=== PATIENT | female | born 1935 | race Caucasian/White ===

== ENCOUNTER 2022-03-05 11:16 | Inpatient (IN) | payer MEDICARE, BC ==
[2022-03-05] MEDS ORDERED: PANTOPRAZOLE 40 MG/10 ML VIAL IVP STA (12:39)
[2022-03-05] MEDS ORDERED: SODIUM CHLORIDE 0.9% 1,000 ML IV STA (12:39)
--- NOTE | 2022-03-05 12:48 | ED ---
General Adult HPI - General Chief complaint: Nausea/Vomiting/Diarrhea Stated complaint: C-Dif Time Seen by Provider: 03/05/22 12:18 Source: patient, family, RN notes reviewed Mode of arrival: ambulatory Limitations: no limitations - History of Present Illness Initial comments: Patient is a pleasant 86-year-old female presenting to the emergency department with concerns of diarrhea. Symptoms have been present for one month. Patient did complete 20 days of vancomycin as well as 10 days of Flagyl. Patient has been off antibiotics now for the last 3 days. Patient did test positive for Clostridium difficile. No nausea vomiting. Patient is tolerating oral intake. No abdominal pain. - Related Data Allergies Allergy/AdvReac Type Severity Reaction Status Date / Time No Known Allergies Allergy Verified 03/05/22 11:30 Review of Systems ROS Statement: Those systems with pertinent positive or pertinent negative responses have been documented in the HPI. ROS Other: All systems not noted in ROS Statement are negative. Constitutional: Denies: fever Eyes: Denies: eye pain ENT: Denies: ear pain Respiratory: Denies: cough Cardiovascular: Denies: chest pain Endocrine: Denies: fatigue Gastrointestinal: Reports: as per HPI, diarrhea. Denies: abdominal pain Genitourinary: Denies: dysuria Musculoskeletal: Denies: back pain Skin: Denies: rash Neurological: Denies: weakness Past Medical History Additional Past Medical History / Comment(s): c diff february 05 History of Any Multi-Drug Resistant Organisms: C-DIFF Past Surgical History: No Surgical Hx Reported Past Psychological History: No Psychological Hx Reported Smoking Status: Never smoker Past Alcohol Use History: None Reported Past Drug Use History: None Reported General Exam Limitations: no limitations General appearance: alert, in no apparent distress Head exam: Present: normocephalic Eye exam: Present: normal appearance Neck exam: Present: normal inspection Respiratory exam: Present: normal lung sounds bilaterally Cardiovascular Exam: Present: regular rate, normal rhythm GI/Abdominal exam: Present: soft. Absent: distended, tenderness Extremities exam: Present: normal inspection Neurological exam: Present: alert Psychiatric exam: Present: normal affect, normal mood Skin exam: Present: normal color Course Vital Signs 03/05/22 11:26 Temperature 97.9 F Pulse Rate 92 Respiratory 18 Rate Blood Pressure 147/77 O2 Sat by Pulse 95 Oximetry Medical Decision Making - Medical Decision Making Case discussed with Dr. Sepulveda, who will admit covering city call and family updated. - Lab Data Result diagrams: 03/05/22 12:48 03/05/22 12:48 Lab Results 03/05/22 03/05/22 Range/Units 12:48 12:48 WBC 6.0 (3.8-10.6) k/uL RBC 4.24 (3.80-5.40) m/uL Hgb 13.3 (11.4-16.0) gm/dL Hct 40.6 (34.0-46.0) % MCV 95.8 (80.0-100.0) fL MCH 31.4 (25.0-35.0) pg MCHC 32.7 (31.0-37.0) g/dL RDW 12.2 (11.5-15.5) % Plt Count 283 (150-450) k/uL MPV 7.8 Neutrophils % 66 % Lymphocytes % 22 % Monocytes % 8 % Eosinophils % 1 % Basophils % 1 % Neutrophils # 4.0 (1.3-7.7) k/uL Lymphocytes # 1.3 (1.0-4.8) k/uL Monocytes # 0.5 (0-1.0) k/uL Eosinophils # 0.1 (0-0.7) k/uL Basophils # 0.0 (0-0.2) k/uL Sodium 136 L (137-145) mmol/L Potassium 4.1 (3.5-5.1) mmol/L Chloride 105 (98-107) mmol/L Carbon Dioxide 26 (22-30) mmol/L Anion Gap 5 mmol/L BUN 14 (7-17) mg/dL Creatinine 0.66 (0.52-1.04) mg/dL Est GFR (CKD-EPI)AfAm >90 (>60 ml/min/1.73 sqM) Est GFR (CKD-EPI)NonAf 81 (>60 ml/min/1.73 sqM) Glucose 96 (74-99) mg/dL Calcium 9.5 (8.4-10.2) mg/dL Total Bilirubin 0.4 (0.2-1.3) mg/dL AST 43 H (14-36) U/L ALT 22 (4-34) U/L Alkaline Phosphatase 63 (38-126) U/L Total Protein 7.1 (6.3-8.2) g/dL Albumin 4.0 (3.5-5.0) g/dL Amylase 85 (30-110) U/L Lipase 169 (23-300) U/L Disposition Clinical Impression: Clostridioides difficile infection Disposition: ADMITTED IP TO THIS HOSP Is patient prescribed a controlled substance at d/c from ED?: No Referrals: Rufina Clifford DO [Primary Care Provider] - 1-2 days Time of Disposition: 13:58
[2022-03-05 13:13] LABS: Basophils % (A) 1 %; Eosinophils # (A) 0.1 k/uL (0-0.7); Eosinophils % (A) 1 %; HCT 40.6 % (34.0-46.0); HGB 13.3 gm/dL (11.4-16.0); Lymphocytes # (A) 1.3 k/uL (1.0-4.8); Lymphocytes % (A) 22 %; MCH 31.4 pg (25.0-35.0); MCHC 32.7 g/dL (31.0-37.0); MCV 95.8 fL (80.0-100.0); Mean Platelet Volume 7.8; Monocytes # (A) 0.5 k/uL (0-1.0); Monocytes % (A) 8 %; Neutrophils % (A) 66 %; Platelet Count 283 k/uL (150-450); RBC 4.24 m/uL (3.80-5.40); RDW 12.2 % (11.5-15.5)
[2022-03-05 13:25] LABS: ALT 22 U/L (4-34); AST 43 U/L (14-36); African American GFR (CKD) >90 (>60 ml/min/1.73 sqM); Alkaline Phosphatase 63 U/L (38-126); Amylase 85 U/L (30-110); Anion Gap 5 mmol/L; Blood Urea Nitrogen 14 mg/dL (7-17); Calcium 9.5 mg/dL (8.4-10.2); Carbon Dioxide 26 mmol/L (22-30); Chloride 105 mmol/L (98-107); Glucose 96 mg/dL (74-99); Lipase 169 U/L (23-300); Non-African American GFR(CKD) 81 (>60 ml/min/1.73 sqM); Potassium 4.1 mmol/L (3.5-5.1); Sodium 136 mmol/L (137-145); Total Bilirubin 0.4 mg/dL (0.2-1.3); Total Protein 7.1 g/dL (6.3-8.2)
[2022-03-05] MEDS ORDERED: NALOXONE 0.4 MG/ML 1 ML VIAL IV PRN (13:59)
[2022-03-05] MEDS ORDERED: VANCOMYCIN IV PER PHARMACY 1 EACH MISC MISCELLANE PRN (14:00)
[2022-03-05] MEDS: FIDAXOMICIN 200 MG TABLET PO SCH ×2 (14:54→21:26)
[2022-03-05] MEDS: SODIUM CHLORIDE 0.9% 1,000 ML IV SCH (14:54)
[2022-03-05] MEDS: metroNIDAZOLE 500 MG TAB PO SCH ×2 (17:41→21:26)
[2022-03-05] MEDS: levETIRAcetam 500 MG TAB PO SCH (21:26)
[2022-03-06] MEDS: SODIUM CHLORIDE 0.9% 1,000 ML IV SCH ×2 (04:00→14:38)
--- NOTE | 2022-03-06 06:51 | HP ---
HISTORY AND PHYSICAL 86-year-old white female came to the emergency room with diarrhea. She says it has been present for a month, 20 days of vancomycin as well as 10 days of Flagyl. She has been off antibiotics now for the last three days. Positive for C diff. Continues to have diarrhea 16-20 episodes at home. Failed outpatient Flagyl and vancomycin. ALLERGIES: Negative. REVIEW OF SYMPTOMS: 14 point review of systems otherwise negative. PHYSICAL EXAMINATION: Vital signs stable, afebrile. Cardiovascular S1, S2. Lungs clear. GI soft, normal bowel sounds. No mass. No rebound. Neurologic: Alert and oriented x3. Psych fair mood and affect. Skin normal color. Temp 97.9, pulse 92, respiratory 16 to 18, blood pressure 147/77. C diff colitis, failed outpatient therapy, mild dehydration, progressive diarrhea unphased, elevated liver enzyme with AST of 43. Infectious Disease consult. Rehydrate. Prognosis guarded. MMODL / KATIEN: [id number] /
[2022-03-06] MEDS: ASPIRIN 81 MG PO SCH (07:48)
[2022-03-06] MEDS: MULTIVITAMINS, THERA 1 EACH TAB PO SCH (07:49)
[2022-03-06] MEDS: FIDAXOMICIN 200 MG TABLET PO SCH ×2 (07:49→20:34)
[2022-03-06] MEDS: PANTOPRAZOLE 40 MG/10 ML VIAL IV SCH (07:50)
[2022-03-06] MEDS: levETIRAcetam 500 MG TAB PO SCH ×2 (09:04→20:34)
--- NOTE | 2022-03-06 12:23 | P.CONS ---
History of Present Illness - Reason for Consult Consult date: 03/06/22 Cdiff, Diarrhea Requesting physician: Carl Hernandez - Chief Complaint Diarrhea - History of Present Illness This is a very pleasant 86-year-old white female who presented to the emergency department with continued complaints of diarrhea. Patient states she has had diarrhea since January 30. States she was seen by her PCP and diagnosed with C. diff colitis towards the end of January and was started on vancomycin and completed 10 days' duration. Patient states she continued to have diarrhea she's been having greater than 10-20 per day. States that she went to [facility] and was seen in the emergency room where they started her on vancomycin and Flagyl again for 10 days duration. She continues to have diarrhea states she's had 5 episodes since midnight last night. She denies any associated nausea vomiting or abdominal pain. Her last colonoscopy she believes was approximately 5 years ago. She denies any recent changes or new medications, she denies any fevers or chills. Review of Systems REVIEW OF SYSTEMS: CARDIOPULMONARY: No chest pain or shortness of breath. Gastrointestinal: No abdominal pain. No nausea or vomiting. No hematemesis, coffee-ground emesis. Had diarrhea since January, complaints of 10-20 episodes a d ay. No rectal bleeding, or melena. GENITOURINARY: No dysuria or hematuria. MUSCULOSKELETAL: Reports normal range of motion. SKIN: No rashes. No jaundice. ENDOCRINE: No chills, fevers. No excessive weight gain or loss. No polydipsia or polyuria. PSYCHIATRIC: Unremarkable. NEUROLOGY: No change in mental status. Denies dizziness, headache. ENT: Vision unremarkable. CONSTITUTIONAL: No recent weight loss. No fever, chills, night sweats. Past Medical History Past Medical History: Seizure Disorder Additional Past Medical History / Comment(s): c diff february 05 History of Any Multi-Drug Resistant Organisms: C-DIFF Year Discovered:: January 2022 MDRO Source:: C-Diff Past Surgical History: No Surgical Hx Reported Additional Past Surgical History / Comment(s): Cataract surgery Past Anesthesia/Blood Transfusion Reactions: No Reported Reaction Past Psychological History: No Psychological Hx Reported Smoking Status: Never smoker Past Alcohol Use History: None Reported Past Drug Use History: None Reported - Past Family History Father History Unknown: Yes Mother History Unknown: Yes Medications and Allergies Home Medications Medication Instructions Recorded Confirmed Type Aspirin EC [Ecotrin Low Dose] 81 mg PO DAILY 03/05/22 03/05/22 History Calcium(Unknown) 1 tab PO DAILY 03/05/22 03/05/22 History Fish Oil(Unknown) 1 cap PO DAILY 03/05/22 03/05/22 History Multivitamins, Thera [Multivitamin 1 tab PO DAILY 03/05/22 03/05/22 History (formulary)] Vitamin B-12(Unknown) 1 tab PO DAILY 03/05/22 03/05/22 History Vitamin C(Unknown) 1 tab PO DAILY 03/05/22 03/05/22 History Vitamin D3(Unknown) 1 tab PO DAILY 03/05/22 03/05/22 History levETIRAcetam [Keppra] 500 mg PO BID 03/05/22 03/05/22 History Allergies Allergy/AdvReac Type Severity Reaction Status Date / Time No Known Allergies Allergy Verified 03/05/22 14:31 Physical Exam Vitals: Vital Signs Temp Pulse Pulse Resp BP BP Pulse Ox 03/06/22 07:14 97.9 F 78 17 124/73 95 03/06/22 01:19 98.0 F 72 16 128/77 94 L 03/05/22 19:53 97.9 F 73 20 137/79 96 03/05/22 16:35 98.0 F 73 18 149/80 95 03/05/22 14:51 80 18 136/78 98 03/05/22 11:26 97.9 F 92 18 147/77 95 Intake and Output 03/05/22 03/06/22 03/06/22 22:59 06:59 14:59 Intake Total 240 360 Balance 240 360 Intake: Oral 240 360 Other: Voiding Method Toilet Diaper # Voids 1 2 # Bowel Movements 6 Weight 59.5 kg General appearance: The patient is alert, oriented, appears in no acute di stress. HET: Head is normocephalic and atraumatic. Conjunctiva pink. Sclera anicteric. Neck: Supple without lymphadenopathy. Trachea midline. Heart: S1 S2. Regular rate and rhythm. Lungs: Clear to auscultation. Abdomen: Soft, nontender, nondistended with bowel sounds. No guarding or rigidity. Skin: No rashes. No jaundice. Extremities: Normal skin color and turgor. No pedal edema. Neurological: No focal deficits. Alert and oriented x3. Results CBC & Chem 7: 03/05/22 12:48 03/05/22 12:48 Labs: Abnormal Lab Results - Last 24 Hours (Table) 03/05/22 Range/Units 12:48 Sodium 136 L (137-145) mmol/L AST 43 H (14-36) U/L Assessment and Plan (1) Diarrhea Narrative/Plan: This is a 86-year-old female who was diagnosed with C. diff mid to late January and was initially treated with vancomycin 10 days. Patient states she continued to have diarrhea and was seen at [facility] where the emergency room physician continued vancomycin for 10 days and started Flagyl. She states she continues to have diarrhea greater than 10-15 times per day. She denies any blood in her stool. She states her last colonoscopy was approximately 5 years a go. No new meds and no fever. Possible etiology includes infectious versus viral, possible continued C. diff infection. Will start with stool studies. Infectious disease is following as well. Current Visit: Yes Status: Acute Code(s): R19.7 - DIARRHEA, UNSPECIFIED SNOMED Code(s): 22159850 (2) History of Clostridioides difficile infection Current Visit: Yes Status: Acute Code(s): Z86.19 - PERSONAL HISTORY OF OTHER INFECTIOUS AND PARASITIC DISEASES SNOMED Code(s): 607529216539660 Plan: 1. Continue symptomatic and supportive care 2. Diet as tolerated 3. Stool studies ordered 4. Await further recommendations from infectious disease 5. Further recommendations forthcoming based on clinical course Thank you for this consultation, we will continue to follow. Dr. Lolita Kauffman I agree with the dictator's note, documented as a scribe by Susie Holder.
[2022-03-06] MEDS: ENOXAPARIN 40 MG/0.4 ML SYRINGE SQ SCH (13:13)
[2022-03-06] MEDS: PSYLLIUM HUSK 100% 6 GM PACKET PO SCH ×2 (13:14→20:34)
[2022-03-06] MEDS: LACTOBACILLUS ACIDOPH & BULGAR 1 EACH PACKET PO SCH ×2 (13:14→20:34)
--- NOTE | 2022-03-06 18:16 | P.PN ---
Progress Note - Text Progress Note Date: 03/06/22 Interval history: I'm rounding for Dr. Zeeshan Sepulveda March 06: Patient's had 2 recent bouts of C. diff colitis. Just finished a course of Flagyl and vancomycin recently. Patient now admitted with acute diarrhea. C. diff has come back to be negative. Empirically has been on Dificid. Since last night patient had at least 10-12 BMs. No blood. No abdominal pain. No fever no chills. I started the patient empirically on Metamucil. Care was discussed with the daughter and the patient at the bedside. Also changing the diet to soft Active Medications Aspirin (Aspirin 81 Mg) 81 mg PO DAILY [facility] Last Admin: 03/06/22 07:48 Dose: 81 mg Enoxaparin Sodium (Enoxaparin 40 Mg/0.4 Ml Syringe) 40 mg SQ DAILY [facility] Last Admin: 03/06/22 13:13 Dose: 40 mg Fidaxomicin (Fidaxomicin 200 Mg Tablet) 200 mg PO BID [facility] Stop: 03/14/22 21:01 Last Admin: 03/06/22 07:49 Dose: 200 mg Sodium Chloride (Saline 0.9%) 1,000 mls @ 75 mls/hr IV .[id number] [facility] Last Admin: 03/06/22 14:38 Dose: Not Given Lactobacillus Acidoph/Bulgaricus (Lactobacillus Acidoph & Bulgar 1 Each Packet) 1 each PO BID [facility] Last Admin: 03/06/22 13:14 Dose: 1 each Levetiracetam (Levetiracetam 500 Mg Tab) 500 mg PO BID [facility] Last Admin: 03/06/22 09:04 Dose: 500 mg Multivitamins (Multivitamins, Thera 1 Each Tab) 1 each PO DAILY [facility] Last Admin: 03/06/22 07:49 Dose: 1 each Naloxone HCl (Naloxone 0.4 Mg/Ml 1 Ml Vial) 0.2 mg IV Q2M PRN PRN Reason: Opioid Reversal Pantoprazole Sodium (Pantoprazole 40 Mg/10 Ml Vial) 40 mg IV DAILY [facility] Last Admin: 03/06/22 07:50 Dose: 40 mg Psyllium Hydrophilic Mucilloid (Psyllium Husk 100% 6 Gm Packet) 6 gm PO BID [facility] Last Admin: 03/06/22 13:14 Dose: 6 gm On examination: VITAL SIGNS: [97.4, 79, 17, 136-71, 96% room air] GENERAL APPEARANCE: Reclining in bed, awake HEENT: Normal external appearance of nose and ear. Oral cavity normal EYES: Pupils equal. Conjunctiva normal. NECK: JVD not raised. Mass not palpable. RESPIRATORY: Respiratory effort normal. Lungs clear to auscultation. CARDIOVASCULAR: First and second sounds normal. No edema. ABDOMEN: Soft. Liver and spleen not palpable. No tenderness. No mass palpable. PSYCHIATRY: Alert and oriented x3. Mood and affect normal. INVESTIGATIONS, reviewed in the clinical context: White count 6 hemoglobin 13.3 platelets 283 potassium 4.1 creatinine 0.66 C. diff: Negative Assessment and plan: -Acute diarrhea uncontrolled. Possibly antibiotic associated diarrhea Patient is a 2 rounds of C. diff infection. Treated with a full course. On this admission C. diff is negative. No white count. No abdominal pain. Start the patient on Metamucil 6 g every 12. Add probiotic. Change diet to soft. Being followed by GI -Epilepsy disorder Keppra 5 mg twice a day -Primary osteoarthritis multiple joints bilaterally Tylenol as needed Add Metamucil. Change diet to soft. DC Protonix. Gentle hydration. Follow with ID and GI. Stool cultures pending.
[2022-03-06 21:48] LABS: Cryptosporidium Antigen Negative (Negative)
--- NOTE | 2022-03-06 22:34 | P.CONS ---
History of Present Illness - Reason for Consult Consult date: 03/06/22 C. diff resistant Requesting physician: Zeeshan Sepulveda - Chief Complaint Worsening diarrhea x few days - History of Present Illness Patient is a 86-year-old female who apparently was recently diagnosed and treated for C. difficile colitis with symptoms started on January 30 as the patient did have a multiple loose stools patient has been treated with a course of oral vancomycin subsequently patient did have persistent diarrhea and the patient was evaluated at [facility] the patient has been treated with vancomycin and Flagyl however the patient did have persistent diarrhea going to the bathroom every hour on the hour patient did have some mucus in the stool but no blood is becoming some crampy abdominal pain intensity is 6-7 out of 10 no radiation some nausea but no vomiting with the symptoms the patient has been evaluated on arrival to the ER the patient was afebrile patient did have a normal white count kidney function has been normal liver enzymes are normal stool for C. difficile requested and currently pending patient was started on Di ficid infectious disease was consulted for further management of antibiotic therapy Review of Systems Positive point has been mentioned in the HPI rest of the systems are negative Past Medical History Past Medical History: Seizure Disorder Additional Past Medical History / Comment(s): c diff february 05 History of Any Multi-Drug Resistant Organisms: C-DIFF Year Discovered:: January 2022 MDRO Source:: C-Diff Past Surgical History: No Surgical Hx Reported Additional Past Surgical History / Comment(s): Cataract surgery Past Anesthesia/Blood Transfusion Reactions: No Reported Reaction Past Psychological History: No Psychological Hx Reported Smoking Status: Never smoker Past Alcohol Use History: None Reported Past Drug Use History: None Reported - Past Family History Father History Unknown: Yes Mother History Unknown: Yes Medications and Allergies Home Medications Medication Instructions Recorded Confirmed Type Aspirin EC [Ecotrin Low Dose] 81 mg PO DAILY 03/05/22 03/05/22 History Calcium(Unknown) 1 tab PO DAILY 03/05/22 03/05/22 History Fish Oil(Unknown) 1 cap PO DAILY 03/05/22 03/05/22 History Multivitamins, Thera [Multivitamin 1 tab PO DAILY 03/05/22 03/05/22 History (formulary)] Vitamin B-12(Unknown) 1 tab PO DAILY 03/05/22 03/05/22 History Vitamin C(Unknown) 1 tab PO DAILY 03/05/22 03/05/22 History Vitamin D3(Unknown) 1 tab PO DAILY 03/05/22 03/05/22 History levETIRAcetam [Keppra] 500 mg PO BID 03/05/22 03/05/22 History Cholestyramine (with Sugar) 4 gm PO ACHS #14 packet 03/08/22 Rx [Questran Packet] Allergies Allergy/AdvReac Type Severity Reaction Status Date / Time No Known Allergies Allergy Verified 03/05/22 14:31 Physical Exam Vitals: Vital Signs Temp Pulse Pulse Resp BP BP Pulse Ox 03/06/22 07:14 97.9 F 78 17 124/73 95 03/06/22 01:19 98.0 F 72 16 128/77 94 L 03/05/22 19:53 97.9 F 73 20 137/79 96 03/05/22 16:35 98.0 F 73 18 149/80 95 03/05/22 14:51 80 18 136/78 98 03/05/22 11:26 97.9 F 92 18 147/77 95 Intake and Output 03/05/22 03/06/22 03/06/22 22:59 06:59 14:59 Intake Total 240 360 Balance 240 360 Intake: Oral 240 360 Other: Voiding Method Toilet Diaper # Voids 1 2 # Bowel Movements 6 Weight 59.5 kg GENERAL DESCRIPTION: Elderly female lying in bed, no distress. No tachypnea or accessory muscle of respiration use. HEENT: Shows Pallor , no scleral icterus. Oral mucous membrane is dry. No pharyngeal erythema or thrush NECK: Trachea central, no thyromegaly. LUNGS: Unlabored breathing. Clear to auscultation anteriorly. No wheeze or crackle. HEART: S1, S2, regular rate and rhythm. No loud murmur ABDOMEN: Soft, no tenderness , guarding or rigidity, no organomegaly EXTREMITIES: No edema of feet. SKIN: No rash, no masses palpable. NEUROLOGICAL: The patient is awake, alert, oriented x3, mood and affect normal. Results CBC & Chem 7: 03/05/22 12:48 03/07/22 06:09 Labs: Abnormal Lab Results - Last 24 Hours (Table) 03/05/22 Range/Units 12:48 Sodium 136 L (137-145) mmol/L AST 43 H (14-36) U/L Assessment and Plan (1) Diarrhea Current Visit: Yes Status: Acute Code(s): R19.7 - DIARRHEA, UNSPECIFIED SNOMED Code(s): 73037202 Plan: 1patient presented to hospital with intractable diarrhea in this patient symptom has been going on since January 30 and has been treated with multiple courses of oral vancomycin and Flagyl not concerning for persistent diarrhea possible C. difficile however the patient did not have any fever or elevated white count which is usually seen in the C. difficile colitis hence will need to rule out other etiologies for her diarrhea. 2 We will wait for the stool for C. difficile to finalize. 3check stool culture. 4continue with the Dificid while waiting for the work-up to be completed. We will follow on clinical condition and cultures to further adjust medication if needed Thank you for this consultation will follow this patient along with you Time with Patient: Greater than 30
[2022-03-07] MEDS: SODIUM CHLORIDE 0.9% 1,000 ML IV SCH (05:38)
[2022-03-07 07:23] LABS: African American GFR (CKD) >90 (>60 ml/min/1.73 sqM); Anion Gap 5 mmol/L; Blood Urea Nitrogen 12 mg/dL (7-17); Calcium 9.4 mg/dL (8.4-10.2); Carbon Dioxide 25 mmol/L (22-30); Chloride 105 mmol/L (98-107); Glucose 87 mg/dL (74-99); Non-African American GFR(CKD) 82 (>60 ml/min/1.73 sqM); Sodium 135 mmol/L (137-145)
[2022-03-07] MEDS: IOPAMIDOL CONTRAST (ORAL USE) VIAL PO PRN ×2 (09:27→09:28)
--- NOTE | 2022-03-07 10:31 | CT ---
EXAMINATION TYPE: CT abdomen pelvis w con CT DLP: 819.8 mGycm, Automated exposure control for dose reduction was used. DATE OF EXAM: 03/07/2022 10:22 AM COMPARISON: None CLINICAL INDICATION:Female, 86 years old with history of diarrhea/colitis; Colitis/diarrhea TECHNIQUE: Axial CT of the abdomen and pelvis . Sagittal and coronal reformats were created on a [employer] workstation. Contrast used:100 ml mL of Isovue 300 with IV Contrast, Oral contrast used: with Oral Contrast FINDINGS: LOWER CHEST: Unremarkable ABDOMEN LIVER: Diffusely hypoattenuating parenchyma. Partially calcified lesion in the dome of the liver righ t hepatic lobe. GALLBLADDER AND BILE DUCTS: Decompressed gallbladder. PANCREAS: Pancreatic divisum morphology is suggested. SPLEEN: Unremarkable. ADRENAL GLANDS: Unremarkable. KIDNEYS AND URETERS: No evidence of hydronephrosis or renal calculus. The ureters are unremarkable. PELVIS BLADDER: Unremarkable REPRODUCTIVE: Asymmetrically enlarged right ovary measuring up to 3.5 x 2.4 cm, ABDOMEN & PELVIS STOMACH AND BOWEL: No evidence of bowel obstruction. PERITONEUM: No evidence of pneumoperitoneum or free fluid. VASCULATURE: No evidence of aortic aneurysm. MUSCULOSKELETAL: No acute osseous abnormalities LYMPH NODES: No gross evidence for lymphadenopathy. SOFT TISSUE/ABDOMINAL WALL: Unremarkable IMPRESSION: 1. No evidence for acute intra-abdominal process 2. Colonic diverticulosis. 3. Asymmetrically enlarged right ovary measuring up to 3.5 cm. A pelvic ultrasound is recommended of the ovaries. 4. Hepatic steatosis. 5. Pancreatic divisum suggested.
[2022-03-07] MEDS: ASPIRIN 81 MG PO SCH (10:57)
[2022-03-07] MEDS: LACTOBACILLUS ACIDOPH & BULGAR 1 EACH PACKET PO SCH ×2 (10:57→20:01)
[2022-03-07] MEDS: FIDAXOMICIN 200 MG TABLET PO SCH (10:57)
[2022-03-07] MEDS: PANTOPRAZOLE 40 MG/10 ML VIAL IV SCH (10:57)
[2022-03-07] MEDS: PSYLLIUM HUSK 100% 6 GM PACKET PO SCH ×2 (10:58→20:01)
[2022-03-07] MEDS: MULTIVITAMINS, THERA 1 EACH TAB PO SCH (10:58)
[2022-03-07] MEDS: levETIRAcetam 500 MG TAB PO SCH ×2 (10:58→20:00)
[2022-03-07] MEDS: ENOXAPARIN 40 MG/0.4 ML SYRINGE SQ SCH (10:58)
--- NOTE | 2022-03-07 14:53 | P.PN ---
Subjective Progress Note Date: 03/07/22 Principal diagnosis: Diarrhea This is a very pleasant 86-year-old white female who presented to the emergency department with continued complaints of diarrhea. Patient states she has had diarrhea since January 30. States she was seen by her PCP and diagnosed with C. diff colitis towards the end of January and was started on vancomycin and completed 10 days' duration. Patient states she continued to have diarrhea she's been having greater than 10-20 per day. States that she went to [facility] and was seen in the emergency room where they started her on vancomycin and Flagyl again for 10 days duration. She continues to have diarrhea states she's had 5 episodes since midnight last night. She denies any associated nausea vomiting or abdominal pain. Her last colonoscopy she believes was approximately 5 years ago. She denies any recent changes or new medications, she denies any fevers or chills. 06/07/2022: Patient seen and examined his follow-up. States her diarrhea has improved. She only had 3 small episodes of diarrhea throughout the night. She was started on probiotics and Metamucil. She states the diarrhea is not as watery. She denies any abdominal pain, nausea or vomiting. She is afebrile. No evidence of leukocytosis. Infectious disease is following and started patient on deficid. Stool Giardia and cryptosporidium negative. C. diff n egative. Stool cultures pending. Objective - Vital Signs Vital signs: Vital Signs Temp 97.7 F 03/07/22 07:13 Pulse 75 03/07/22 07:13 Resp 17 03/07/22 07:13 BP 123/66 03/07/22 07:13 Pulse Ox 96 03/07/22 07:13 FiO2 Intake & Output 03/06/22 03/07/22 03/07/22 18:59 06:59 18:59 Intake Total 300 Balance 300 Intake: Oral 300 Other: Voiding Method Toilet Diaper # Voids 6 3 # Bowel Movements 1 - Exam General appearance: The patient is alert, oriented, appears in no acute distress. HET: Head is normocephalic and atraumatic. Conjunctiva pink. Sclera anicteric. Neck: Supple without lymphadenopathy. Abdomen: Soft, nontender, nondistended with bowel sounds. No guarding or rigidity. Extremities: Normal skin color and turgor. No pedal edema Skin: No rashes, no jaundice Neurological: No focal deficits. Alert and oriented -3. - Labs CBC & Chem 7: 03/05/22 12:48 03/07/22 06:09 Labs: Abnormal Lab Results - Last 24 Hours (Table) 03/07/22 Range/Units 06:09 Sodium 135 L (137-145) mmol/L Microbiology - Last 24 Hours (Table) 03/06/22 10:02 Stool Culture - Preliminary Stool Assessment and Plan (1) Diarrhea Narrative/Plan: This is a 86-year-old female who was diagnosed with C. diff mid to late January and was initially treated with vancomycin 10 days. Patient states she continued to have diarrhea and was seen at [facility] where the emergency room physician continued vancomycin for 10 days and started Flagyl. She states she continues to have diarrhea greater than 10-15 times per day. She denies any blood in her stool. She states her last colonoscopy was approximately 5 years ago. No new meds and no fever. Possible etiology includes infectious versus viral, possible continued C. diff infection. Will start with stool studies. Infectious disease is following as well. Current Visit: Yes Status: Acute Code(s): R19.7 - DIARRHEA, UNSPECIFIED SNOMED Code(s): 53992388 (2) History of Clostridioides difficile infection Current Visit: Yes Status: Acute Code(s): Z86.19 - PERSONAL HISTORY OF OTHER INFECTIOUS AND PARASITIC DISEASES SNOMED Code(s): 737941304214833 Plan: 1. Continue symptomatic and supportive care 2. Diet as tolerated 3. Stool cultures pending 4. Await further recommendations from infectious disease 5. Will add Questran daily 6. We'll continue to monitor, diarrhea seems to be improving. Thank you for this consultation, we will continue to follow. Dr. Lolita Kauffman I agree with the dictator's note, documented as a scribe by Susie Holder.
[2022-03-07] MEDS: CHOLESTYRAMINE (WITH SUGAR) 4 GM PACKET PO SCH ×2 (16:50→20:01)
[2022-03-07] MEDS ORDERED: CHOLESTYRAMINE (WITH SUGAR) 4 GM PACKET PO SCH (18:00)
[2022-03-08] MEDS: SODIUM CHLORIDE 0.9% 1,000 ML IV SCH ×3 (06:39→22:35)
[2022-03-08] MEDS: PSYLLIUM HUSK 100% 6 GM PACKET PO SCH ×2 (08:12→21:53)
[2022-03-08] MEDS: PANTOPRAZOLE 40 MG/10 ML VIAL IV SCH (08:13)
[2022-03-08] MEDS: CHOLESTYRAMINE (WITH SUGAR) 4 GM PACKET PO SCH ×4 (08:13→21:53)
[2022-03-08] MEDS: ENOXAPARIN 40 MG/0.4 ML SYRINGE SQ SCH (08:13)
[2022-03-08] MEDS: LACTOBACILLUS ACIDOPH & BULGAR 1 EACH PACKET PO SCH ×2 (08:13→21:53)
[2022-03-08] MEDS: levETIRAcetam 500 MG TAB PO SCH ×2 (08:13→21:53)
[2022-03-08] MEDS: ASPIRIN 81 MG PO SCH (08:13)
[2022-03-08] MEDS: MULTIVITAMINS, THERA 1 EACH TAB PO SCH (08:13)
[2022-03-08] MEDS ORDERED: LOPERAMIDE 2 MG CAP PO PRN (10:05)
--- NOTE | 2022-03-08 14:04 | P.PN ---
Subjective Progress Note Date: 03/08/22 Principal diagnosis: Diarrhea This is a very pleasant 86-year-old white female who presented to the emergency department with continued complaints of diarrhea. Patient states she has had diarrhea since January 30. States she was seen by her PCP and diagnosed with C. diff colitis towards the end of January and was started on vancomycin and completed 10 days' duration. Patient states she continued to have diarrhea she's been having greater than 10-20 per day. States that she went to [facility] and was seen in the emergency room where they started her on vancomycin and Flagyl again for 10 days duration. She continues to have diarrhea states she's had 5 episodes since midnight last night. She denies any associated nausea vomiting or abdominal pain. Her last colonoscopy she believes was approximately 5 years ago. She denies any recent changes or new medications, she denies any fevers or chills. 03/07/2022: Patient seen and examined his follow-up. States her diarrhea has improved. She only had 3 small episodes of diarrhea throughout the night. She was started on probiotics and Metamucil. She states the diarrhea is not as watery. She denies any abdominal pain, nausea or vomiting. She is afebrile. No evidence of leukocytosis. Infectious disease is following and started patient on deficid. Stool Giardia and cryptosporidium negative. C. diff yunier tracy. Stool cultures pending. 03/08/2022: Patient seen and examined is a follow-up for diarrhea. States her diarrhea has been improving and then this morning she has had 4-5 episodes of loose stool since 7 AM however increased in bulk. She denies any blood in her stool. She denies any associated abdominal pain or cramping, nausea or vomiting. She is tolerating her diet well. She's been afebrile. Stool cultures are still pending. Objective - Vital Signs Vital signs: Vital Signs Temp 98.0 F 03/08/22 07:11 Pulse 90 03/08/22 07:11 Resp 17 03/08/22 07:11 BP 115/73 03/08/22 07:11 Pulse Ox 97 03/08/22 07:11 FiO2 Intake & Output 03/07/22 03/08/22 03/08/22 18:59 06:59 18:59 Other: # Voids 4 2 # Bowel Movements 1 - Exam General appearance: The patient is alert, oriented, appears in no acute distress. HET: Head is normocephalic and atraumatic. Conjunctiva pink. Sclera anicteric. Neck: Supple without lymphadenopathy. Abdomen: Soft, nontender, nondistended with bowel sounds. No guarding or rigidity. Extremities: Normal skin color and turgor. No pedal edema Skin: No rashes, no jaundice Neurological: No focal deficits. Alert and oriented -3. - Labs CBC & Chem 7: 03/05/22 12:48 03/07/22 06:09 Assessment and Plan (1) Diarrhea Narrative/Plan: This is a 86-year-old female who was diagnosed with C. diff mid to late January and was initially treated with vancomycin 10 days. Patient states she continued to have diarrhea and was seen at [facility] where the emergency room physician continued vancomycin for 10 days and started Flagyl. She states she continues to have diarrhea greater than 10-15 times per day. She denies any blood in her stool. She states her last colonoscopy was approximately 5 years ago. No new meds and no fever. Possible etiology includes infectious versus viral, possible continued C. diff infection. Will start with stool studies. Infectious disease is following as well. CT abdomen and pelvis reported no evidence for acute intra-abdominal process. Colonic diverticulosis. Asymmetrically is enlarged right ovary, hepatic steatosis, pancreatic divisum suggested Current Visit: Yes Status: Acute Code(s): R19.7 - DIARRHEA, UNSPECIFIED SNOMED Code(s): 04845417 (2) History of Clostridioides difficile infection Current Visit: Yes Status: Acute Code(s): Z86.19 - PERSONAL HISTORY OF OTHER INFECTIOUS AND PARASITIC DISEASES SNOMED Code(s): 604191360126559 Plan: 1. Continue symptomatic and supportive care 2. Diet as tolerated 3. Stool cultures pending 4. Await further recommendations from infectious disease 5. Continue Questran daily 6. Will add Imodium every 6 hours scheduled 7. Consider outpatient colonoscopy if diarrhea does not improve. Otherwise patient is cleared for discharge by gastroenterology Thank you for allowing us to participate in the care of the patient, the GI service will sign off, gastroenterology will not be available at the hospital this weekend and through next week. If further evaluation by gastroenterology is required the patient will need transfer as per the primary team's discretion. Dr. Lolita Kauffman I agree with the dictator's note, documented as a scribe by Susie Holder.
--- NOTE | 2022-03-08 16:29 | P.PN ---
Subjective Progress Note Date: 03/07/22 Principal diagnosis: Diarrhea/infectious etiology Patient is 86-year-old female with recent diagnosis of C. diff colitis has been treated with oral Flagyl and vancomycin subsequently presented to the hospital with the worsening diarrhea and there was a concern for recurrent C. diff however stool for C. diff came back negative On today's evaluation data 03/07/2022, the patient denies having any fever or chills, the patient denies having any abdominal pain to be diarrhea has slightly decreased intensity no blood or mucus in stools no chest pain shortness of breath or cough Objective - Vital Signs Vital signs: Vital Signs Temp 97.7 F 03/07/22 07:13 Pulse 75 03/07/22 07:13 Resp 17 03/07/22 07:13 BP 123/66 03/07/22 07:13 Pulse Ox 96 03/07/22 07:13 FiO2 Intake & Output 03/06/22 03/07/22 03/07/22 18:59 06:59 18:59 Intake Total 300 Balance 300 Intake: Oral 300 Other: Voiding Method Toilet Diaper # Voids 6 3 # Bowel Movements 1 - Exam GENERAL DESCRIPTION: An elderly female lying in bed in no distress RESPIRATORY SYSTEM: Unlabored breathing , decreased breath sounds at bases HEART: S1 S2 regular rate and rhythm , ABDOMEN: Soft , no tenderness EXTREMITIES: No edema feet - Labs CBC & Chem 7: 03/05/22 12:48 03/07/22 06:09 Labs: Abnormal Lab Results - Last 24 Hours (Table) 03/07/22 Range/Units 06:09 Sodium 135 L (137-145) mmol/L Microbiology - Last 24 Hours (Table) 03/06/22 10:02 Stool Culture - Preliminary Stool Assessment and Plan (1) Diarrhea Current Visit: Yes Status: Acute Code(s): R19.7 - DIARRHEA, UNSPECIFIED SNOMED Code(s): 13147155 Plan: 1patient presented to hospital with intractable diarrhea in this patient symptom has been going on since January 30 and has been treated with multiple courses of oral vancomycin and Flagyl not concerning for persistent diarrhea possible C. difficile however the patient did not have any fever or elevated white count which is usually seen in the C. difficile colitis hence will need to rule out other etiologies for her diarrhea. 2 stool for C. diff came back negative 3stool culture and CT abdominal pelvis currently pending. 4we will discontinue Dificid continue with the Questran for symptomatic relief Time with Patient: Less than 30
--- NOTE | 2022-03-08 16:32 | P.PN ---
Subjective Progress Note Date: 03/08/22 Principal diagnosis: Diarrhea/infectious etiology Patient is 86-year-old female with recent diagnosis of C. diff colitis has been treated with oral Flagyl and vancomycin subsequently presented to the hospital with the worsening diarrhea and there was a concern for recurrent C. diff however stool for C. diff came back negative, CT of abdominal pelvis did not show any acute abnormality On today's evaluation data 03/08/2022, the patient remains to be afebrile,, the patient denies having abdominal pain, the patient diarrhea has decreased in frequency and slightly forming up no blood or mucus in the stool, patient denies having any chest pain or shortness of the cough Objective - Vital Signs Vital signs: Vital Signs Temp 98.2 F 03/08/22 14:00 Pulse 83 03/08/22 14:00 Resp 18 03/08/22 14:00 BP 147/74 03/08/22 14:00 Pulse Ox 96 03/08/22 14:00 FiO2 Intake & Output 03/07/22 03/08/22 03/08/22 18:59 06:59 18:59 Other: Voiding Method Toilet # Voids 4 2 # Bowel Movements 1 - Exam GENERAL DESCRIPTION: An elderly female lying in bed in no distress RESPIRATORY SYSTEM: Unlabored breathing , decreased breath sounds at bases HEART: S1 S2 regular rate and rhythm , ABDOMEN: Soft , no tenderness EXTREMITIES: No edema feet - Labs CBC & Chem 7: 03/05/22 12:48 03/07/22 06:09 Assessment and Plan (1) Diarrhea Current Visit: Yes Status: Acute Code(s): R19.7 - DIARRHEA, UNSPECIFIED SNOMED Code(s): 41315102 Plan: 1patient presented to hospital with intractable diarrhea in this patient symptom has been going on since January 30 and has been treated with multiple courses of oral vancomycin and Flagyl not concerning for persistent diarrhea possible C. difficile however the patient did not have any fever or elevated white count which is usually seen in the C. difficile colitis hence will need to rule out other etiologies for her diarrhea. 2 stool for C. diff came back negative 3stool culture are pending, CT abdominal pelvis did not show any evidence of colitis or acute normality 4patient to continue with the Questran for symptomatic relief and monitor clinical course closely Time with Patient: Less than 30
[2022-03-08] MEDS: LOPERAMIDE 2 MG CAP PO SCH ×2 (17:01→22:05)
--- NOTE | 2022-03-08 18:59 | PN ---
PROGRESS NOTE DATE OF SERVICE: 03/07/2022 This is an 86-year-old white female with C difficile colitis. She had a repeat culture that showed negative C difficile, so we are waiting for final stool culture to come back, as she was having 16 episodes of diarrhea a day. She was taken off the after 3 days. Questran has been ordered, which is helping her with her stools. and Dr. Leyva to wait for her to get the final culture of the stools back before we discharge her. Blood pressure 147/70, O2 96, temperature 98.2, pulse 83, respiratory rate 18. Cardiovascular S1, S2. Lungs clear. GI soft. Hematology negative Homans. Please see further orders. Will wait for the final culture prior to going home. MMODL / IJN: [id number] /
[2022-03-09] MEDS: ENOXAPARIN 40 MG/0.4 ML SYRINGE SQ SCH (08:18)
[2022-03-09] MEDS: PANTOPRAZOLE 40 MG/10 ML VIAL IV SCH (08:18)
[2022-03-09] MEDS: LOPERAMIDE 2 MG CAP PO SCH ×4 (08:18→22:46)
[2022-03-09] MEDS: CHOLESTYRAMINE (WITH SUGAR) 4 GM PACKET PO SCH ×4 (08:18→22:47)
[2022-03-09] MEDS: LACTOBACILLUS ACIDOPH & BULGAR 1 EACH PACKET PO SCH ×2 (08:18→22:46)
[2022-03-09] MEDS: MULTIVITAMINS, THERA 1 EACH TAB PO SCH (08:18)
[2022-03-09] MEDS: ASPIRIN 81 MG PO SCH (08:18)
[2022-03-09] MEDS: levETIRAcetam 500 MG TAB PO SCH ×2 (08:18→22:46)
[2022-03-09] MEDS: PSYLLIUM HUSK 100% 6 GM PACKET PO SCH ×2 (08:18→22:45)
[2022-03-09] MEDS: SODIUM CHLORIDE 0.9% 1,000 ML IV SCH ×2 (08:19→23:44)
--- NOTE | 2022-03-09 17:27 | P.PN ---
Subjective Progress Note Date: 03/09/22 Principal diagnosis: Diarrhea/infectious etiology Patient is 86-year-old female with recent diagnosis of C. diff colitis has been treated with oral Flagyl and vancomycin subsequently presented to the hospital with the worsening diarrhea and there was a concern for recurrent C. diff however stool for C. diff came back negative, CT of abdominal pelvis did not show any acute abnormality On today's evaluation data 03/09/2022, the patient denies any fever or chills, the patient denies having abdominal pain, the patient diarrhea has decreased in frequency and slightly forming up, there is no blood or mucus in the stool, patient denies having any chest pain or shortness of the cough Objective - Vital Signs Vital signs: Vital Signs Temp 98.2 F 03/09/22 14:00 Pulse 83 03/09/22 14:00 Resp 16 03/09/22 14:00 BP 125/75 03/09/22 14:00 Pulse Ox 96 03/09/22 14:00 FiO2 Intake & Output 03/08/22 03/09/22 03/09/22 18:59 06:59 18:59 Other: Voiding Method Toilet Toilet Toilet # Voids 3 2 4 # Bowel Movements 10 1 4 - Exam GENERAL DESCRIPTION: An elderly female lying in bed in no distress RESPIRATORY SYSTEM: Unlabored breathing , decreased breath sounds at bases HEART: S1 S2 regular rate and rhythm , ABDOMEN: Soft , no tenderness EXTREMITIES: No edema feet - Labs CBC & Chem 7: 03/05/22 12:48 03/07/22 06:09 Assessment and Plan (1) Diarrhea Current Visit: Yes Status: Acute Code(s): R19.7 - DIARRHEA, UNSPECIFIED SNOMED Code(s): 82663896 Plan: 1patient presented to hospital with intractable diarrhea in this patient symptom has been going on since January 30 and has been treated with multiple courses of oral vancomycin and Flagyl not concerning for persistent diarrhea possible C. difficile however the patient did not have any fever or elevated white count which is usually seen in the C. difficile colitis hence will need to rule out other etiologies for her diarrhea. 2 stool for C. diff came back negative 3stool culture are so far pending, CT abdominal pelvis did not show any acute abnormality 4patient to continue with the Questran for symptomatic relief while waiting for the cultures to finalize Time with Patient: Less than 30
[2022-03-09] MEDS ORDERED: acetaZOLAMIDE 250 MG TAB PO SCH (21:00)
[2022-03-10 01:21] VITALS: RESP 16
[2022-03-10] MEDS: LACTOBACILLUS ACIDOPH & BULGAR 1 EACH PACKET PO SCH (08:14)
[2022-03-10] MEDS: levETIRAcetam 500 MG TAB PO SCH (08:14)
[2022-03-10] MEDS: MULTIVITAMINS, THERA 1 EACH TAB PO SCH (08:14)
[2022-03-10] MEDS: LOPERAMIDE 2 MG CAP PO SCH ×2 (08:14→12:11)
[2022-03-10] MEDS: ASPIRIN 81 MG PO SCH (08:14)
[2022-03-10] MEDS: PANTOPRAZOLE 40 MG/10 ML VIAL IV SCH (08:14)
[2022-03-10] MEDS: PSYLLIUM HUSK 100% 6 GM PACKET PO SCH (08:15)
[2022-03-10] MEDS: CHOLESTYRAMINE (WITH SUGAR) 4 GM PACKET PO SCH ×2 (08:15→12:10)
[2022-03-10] MEDS: ENOXAPARIN 40 MG/0.4 ML SYRINGE SQ SCH (08:15)
[2022-03-10 10:24] VITALS: BP 113/70; PULSE 91; TEMP 98.6
== END 2022-03-10 13:36 | disposition home or self-care (01) | DRG 392 ==
LOC: EC 11:16 → 4SSUR 13:59
PROVIDERS: ADMIT Family Medicine; ATTEND Family Medicine
DX: R19.7 Diarrhea, unspecified (principal); Q45.3 Other congenital malformations of pancreas and pancreatic duct; G40.909 Epilepsy, unspecified, not intractable, without status epilepticus; K57.30 Diverticulosis of large intestine without perforation or abscess without bleeding; K76.0 Fatty (change of) liver, not elsewhere classified; M15.9 Polyosteoarthritis, unspecified; N83.8 Other noninflammatory disorders of ovary, fallopian tube and broad ligament; Z79.82 Long term (current) use of aspirin; Z79.899 Other long term (current) drug therapy; Z28.310 Unvaccinated for COVID-19; Z28.21 Immunization not carried out because of patient refusal; Z86.19 Personal history of other infectious and parasitic diseases
CPT/HCPCS: 36415; 74177; 80048; 80053; 82150; 83690; 85025; 87045; 87046; 87324; 87328; 87329; 96361; 96374; 99284